=== PATIENT | male | born 1945 | race Caucasian/White ===

== ENCOUNTER 2021-07-19 13:06 | Outpatient (REF) | payer MEDICARE, OTHER, SELFPAY ==
[2021-07-19 14:51] LABS: Alanine Aminotransferase 33 U/L (0-40); Albumin Level 4.3 g/dL (3.5-5.0); Alkaline Phosphatase 79 U/L (39-117); Anion Gap 12 (12-20); Aspartate Amino Transferase 17 U/L (5-37); Blood Urea Nitrogen 23 mg/dL (9-16); Calcium 9.3 mg/dL (8.4-10.2); Carbon Dioxide 27 mmol/L (22-29); Chloride 106 mmol/L (96-108); Estimated Glomerular Filt Rate > 60; Glucose Random 83 mg/dL (60-115); Potassium 4.5 mmol/L (3.3-5.1); Sodium 140 mmol/L (135-145); Total Protein 6.6 g/dL (6.5-8.0)
[2021-07-19 15:13] LABS: Prostate Specific Antigen Scr 1.71 ng/mL (<0.05-4.0)
== END 2021-07-19 13:07 | disposition home or self-care (01) ==
LOC: HO.LAB 13:06
PROVIDERS: PCP Family Medicine; Visit Provider Family Medicine
DX: Z12.5 Encounter for screening for malignant neoplasm of prostate (principal); R53.83 Other fatigue; N40.0 Benign prostatic hyperplasia without lower urinary tract symptoms
CPT/HCPCS: 36415; 80053; 84153

== ENCOUNTER 2023-07-23 11:14 | Outpatient (REF) | payer MEDICARE, OTHER, SELFPAY ==
[2023-07-23 11:27] LABS: MANUAL DIFF FLAG NO
[2023-07-23 12:11] LABS: Basophils Percent Auto 0.8 % (0-2); Eosinophils Absolute Auto 0.2 X10*3/uL (0.0-0.4); Eosinophils Percent Auto 3.7 % (0-4); Hematocrit 45.8 % (42.0-52.0); Imm Gran Abs Auto 0.02 X10*3/uL (0.00-0.03); Imm Gran Pct Auto 0.4 % (0.0-0.4); Lymphocytes Absolute Auto 1.8 X10*3/uL (1.2-4.9); Mean Corpuscular HGB Conc 32.8 g/dl (31.0-36.0); Mean Corpuscular Hemoglobin 30.7 pg (27.0-33.0); Mean Corpuscular Volume 93.7 fL (80.0-98.0); Mean Platelet Volume 11.6 fL (9.4-12.4); Monocytes Absolute Auto 0.4 X10*3/uL (0.1-1.2); Monocytes Percent Auto 8.1 % (2-11); Neutrophils Absolute Auto 2.7 x10*3/uL (2.0-8.3); Platelet Count 184 X10*3/uL (160-400); Red Blood Count 4.89 X10*6/uL (4.60-5.80); Red Cell Distribution Width 12.7 % (11.0-16.0); White Blood Count 5.2 X10*3/uL (4.8-10.8)
[2023-07-23 12:59] LABS: Anion Gap 9 (12-20); Blood Urea Nitrogen 20 mg/dL (9-16); Carbon Dioxide 27 mmol/L (22-29); Chloride 109 mmol/L (96-108); Estimated Glomerular Filt Rate > 60; Potassium 4.3 mmol/L (3.3-5.1); Sodium 141 mmol/L (135-145)
== END 2023-07-23 11:15 | disposition home or self-care (01) ==
LOC: HO.LAB 11:14
PROVIDERS: PCP Family Medicine; Visit Provider Family Medicine
DX: M19.90 Unspecified osteoarthritis, unspecified site (principal); I10 Essential (primary) hypertension
CPT/HCPCS: 36415; 80051; 82565; 84520; 85025

== ENCOUNTER 2024-04-28 11:45 | Outpatient (REF) | payer MEDICARE, OTHER, SELFPAY ==
[2024-04-28 14:16] LABS: Anion Gap 14 (12-20); Blood Urea Nitrogen 20 mg/dL (9-16); Carbon Dioxide 24 mmol/L (22-29); Chloride 108 mmol/L (96-108); Estimated Glomerular Filt Rate > 60; Potassium 4.4 mmol/L (3.3-5.1); Sodium 142 mmol/L (135-145)
== END 2024-04-28 11:46 | disposition home or self-care (01) ==
LOC: HO.10HDL 11:45
PROVIDERS: Visit Provider Family Medicine
DX: I10 Essential (primary) hypertension (principal)
CPT/HCPCS: 36415; 80051; 82565; 84520

== ENCOUNTER 2025-10-17 10:50 | Outpatient (REF) | payer MEDICARE, OTHER, SELFPAY ==
[2025-10-17 11:48] LABS: MANUAL DIFF FLAG NO
[2025-10-17 12:12] LABS: Hematocrit 46.0 % (42.0-52.0); Hemoglobin 14.9 g/dl (14.0-18.0); Imm Gran Abs Auto 0.01 X10*3/uL (0.00-0.03); Imm Gran Pct Auto 0.2 % (0.0-0.4); Lymphocytes Absolute Auto 1.7 X10*3/uL (1.2-4.9); Mean Corpuscular HGB Conc 32.4 g/dl (31.0-36.0); Mean Corpuscular Hemoglobin 30.6 pg (27.0-33.0); Mean Corpuscular Volume 94.5 fL (80.0-98.0); NRBC Abs Auto 0.000 X10*3/uL (0.0-0.012); NRBC Pct Auto 0.0 /100WBC (0.0-0.2); Platelet Count 194 X10*3/uL (160-400); Red Blood Count 4.87 X10*6/uL (4.60-5.80); White Blood Count 4.8 X10*3/uL (4.8-10.8)
[2025-10-17 12:47] LABS: Alanine Aminotransferase 29 U/L (0-40); Albumin Level 4.7 g/dL (3.5-5.0); Alkaline Phosphatase 81 U/L (39-117); Anion Gap 13 (12-20); Aspartate Amino Transferase 20 U/L (5-37); Blood Urea Nitrogen 17 mg/dL (9-16); Calcium 9.5 mg/dL (8.4-10.2); Carbon Dioxide 26 mmol/L (22-29); Chloride 107 mmol/L (96-108); Cholesterol 209 mg/dL (<200); Estimated Glomerular Filt Rate > 60; HDL Cholesterol 53 mg/dL (>40); Potassium 4.6 mmol/L (3.3-5.1); Sodium 141 mmol/L (135-145); Total Protein 7.1 g/dL (6.5-8.0); Triglycerides 130 mg/dL (<150)
[2025-10-17 13:04] LABS: HBS Num1 0.14 mIU/mL (0-7.99); HBc Num1 0.10 S/CO (0.00-0.79); HBsAGNum1 0.47 S/CO (0.00-0.99); HIV Num 1 0.05 S/CO (0.00-0.99); Hepatitis A Antibody IgM 0.21 Index (0-0.79); Hepatitis B Surface Antigen Negative (Negative); ~HepC Num1 0.15 S/CO (0.00-0.79); ~Hepatitis A Antibody IgM Nonreactive (Nonreactive); ~Hepatitis B Surface Antibody NONREACTIVE (Nonreactive); ~Hepatitis C Antibody Nonreactive (Nonreactive)
[2025-10-17 13:05] LABS: Syphilis Screen Nonreactive (Nonreactive)
== END 2025-10-17 10:51 | disposition home or self-care (01) ==
LOC: HO.LAB 10:50
PROVIDERS: PCP Student in an Organized Health Care Education/Training Program; Visit Provider Student in an Organized Health Care Education/Training Program
DX: Z00.00 Encounter for general adult medical examination without abnormal findings (principal); I10 Essential (primary) hypertension; M17.0 Bilateral primary osteoarthritis of knee; N40.1 Benign prostatic hyperplasia with lower urinary tract symptoms; R35.1 Nocturia; E78.5 Hyperlipidemia, unspecified; R73.03 Prediabetes
CPT/HCPCS: 36415; 80053; 80061; 82306; 82570; 83036; 84443; 85025; 86704; 86706; 86709; 86780; 86803; 87340; 87389; 99202; 99387

== ENCOUNTER 2025-10-17 10:50 | Outpatient (AMB) | payer MEDICARE, OTHER, SELFPAY ==
--- NOTE | 2025-10-17 10:56 | A.OFFPC_ITS ---
Vital Signs 10/17/25 11:01 Height 5 ft 9 in Weight 185 lb BMI 27.3 BP 184/96 H Blood Pressure Location Lt brachial Position Sitting Respiration 18 Pulse 66 Pulse Source Pulse Oximeter Temp 97.9 F Temp Source Temporal Artery Scan Pulse Oximetry (%) 98 Oxygen Delivery Method Room Air Intake Visit Reasons: 3 MO F/UP - [facility] Shift Lead Required: No Accompanied by: Self / Same As Patient Allergies No Known Allergies Allergy (Verified 10/17/25 10:59) Medication List - Last Reconciled 10/17/25 by Bijan Ledesma MD losartan 100 mg PO DAILY Tobacco use date assessed: 10/17/25 Fall risk assessment: No Falls in past year Last assessed Fall Risk: 10/17/25 Dental Screening Dental Screen Date: 10/17/25 Did you have a dental visit in the last 12 months?: Yes Did you have a dental problem in the last 6 months where you did not have access to dental care?: No Was dental information given to patient?: Patient has dentist HPI HPI Comments History of Present Illness Details History of Present Illness The patient is a 79-year-old male presenting for a new patient visit for establishment of care and management of chronic conditions. He reports a history of hypertension diagnosed about two years ago. He currently takes losartan at night, having been switched from lisinopril due to a cough. His blood pressure at home is typically in the 150s, but can decrease to the 128-132/68-71 range after exercise. The patient has severe, [id number] osteoarthritis of the knees. He has tried cortisone injections without success and is planning to receive gel injections. His father had colon cancer and at age 71. The patient underwent regular colonoscopies until about age 70-75, with his last one performed in 2013. The patient reports urinary symptoms including nocturia once or twice a night and a weak stream, which he states is not bothersome. Socially, the patient is retired and lives an active lifestyle, playing pickleball and tennis multiple times per week and going to the gym. He reports occasional alcohol consumption of beer or wine, about 2-3 times per week, and denies any history of smoking or illicit drug use. Medical History: - Hypertension, diagnosed approximately 2 years ago - Osteoarthritis of the knees, described as bone on bone - History of cough secondary to lisinopr il Surgical History: - Denies any past surgeries. Medications: - Losartan for hypertension, taken at [facility]. Family History: - Father had colon cancer and at ag e 71. - Denies family history of heart disease or diabetes. Diagnostic Results: - Vitals: Blood pressure in clinic was 1 84/96 mmHg. - Home Blood Pressure Monitoring: Report s readings in the 150s at rest, and 128-132/68-71 after exercise. - Past Screening: Last colonoscopy was i n 2013. Social History - Tobacco Use: Denies ever smoking. - Alcohol Use: Reports occasional use of beer or wine, approximately 2-3 times per week. - Illicit Substance Use: Denies use of m arijuana, heroin, or cocaine. 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 - Exercise: Reports being very active; p lays pickleball 2-3 hours three times a week, plays tennis, and goes to the gym. [facility] Medical History (Updated 10/17/25 @ 12:02 by Bijan Ledesma MD) Annual physical exam BPH associated with nocturia Osteoarthritis, knee Hypertension, essential, benign Surgical History (Updated 10/16/25 @ 16:42 by Ivet Tracey) History of colonoscopy (~10/11/14) Social History Housing: House Patient Tobacco Use Status: Never used Tobacco e-Cigarette/Vaping Use: Never Used service: Yes Current occupational status: retired Questionnaire AUDIT C Alcohol Use Questionnaire (AUDIT-C) 1. How often do you have a drink containing alcohol?: 2-3 times a week 2. How many drinks containing alcohol do you have on a typical day when you are drinking?: 1 or 2 3. How often do you have six or more drinks on one occasion?: Never Total Score: 3 Score Reviewed/Action Taken: Yes Review of Systems Narrative Review of Systems - Constitutional: Denies weight loss or weight gain. - Cardiovascular: Denies chest pain, palpitations, or feeling that his heart is racing. - Eyes: Denies any change in vision. - Gastrointestinal: Denies difficulty swallowing, abdominal pain, or constipation. - Genitourinary: Reports nocturia (waking 1-2 times per night to urinate) and a weak urinary stream. - Neurological: Denies headaches. - Musculoskeletal: Reports leg swelling associated with his knee condition. - Psychological: Reports a good mood. All systems reviewed & are unremarkable except as reviewed in HPI and above Physical exam (Primary Care) Vital Signs: Last Vital Signs Temp 97.9 F 10/17/25 11:01 Pulse 66 10/17/25 11:01 Resp 18 10/17/25 11:01 BP 184/96 H 10/17/25 11:01 Pulse Ox 98 10/17/25 11:01 Oxygen Delivery Method Room Air 10/17/25 11:01 BMI result Body Mass Index 27.3 Tobacco/Smoking Status: Tobacco use Status Tobacco use date assessed 10/17/25 10/17/25 10:59 Patient Tobacco Use Status Never used Tobacco 10/17/25 11:03 e-Cigarette/Vaping Use Never Used 10/17/25 11:03 Narrative Physical Exam General: +Alert and oriented, Well nourished, No acute distress. Eye: Pupils are equal, round and reactive to light, Intact accommodation, Extraocular movements are intact, Normal conjunctiva, Vision unchanged. HENT: Normocephalic, Atraumatic, Tympanic membranes are clear, Normal hearing, Oral mucosa is moist, No pharyngeal erythema, Ear canals patent. Respiratory: Lungs CTA bilaterally, No wheeze, Respirations are non-labored. Cardiovascular: Regular rate, Regular rhythm, S1 auscultated, S2 auscultated, No murmur, Good pulses equal in all extremities, Normal peripheral perfusion, No edema. Gastrointestinal: Soft, Non-tender, Non-distended, Normal bowel sounds, No organomegaly. Musculoskeletal: Normal range of motion, Normal strength, No tenderness, No swelling, No deformity, Normal gait. Integumentary: Warm, Dry, [place], Intact. Neurologic: Alert, Oriented, Normal sensory, Normal motor function, No focal defects, Cranial Nerves II-XII are grossly intact, Normal deep tendon reflexes. Psychiatric: Cooperative, Appropriate mood & affect, Normal judgment. Coding Level of Care Code New Pt Level 4 (69655) New Pt Prev Care >65yr (60201) Diagnoses Hypertension, essential, benign I10 Osteoarthritis of knee, unspecified laterality, unspecified osteoarthritis type M17.9 Laterality: unspecified laterality Osteoarthritis type: unspecified BPH associated with nocturia N40.1; R35.1 Annual physical exam Z00.00 Comment [id number] Assessment & Plan Assessment & Plan (1) Hypertension, essential, benign: Comment: - The patient's blood pressure is severely elevated at 184/96 mmHg despite treatment with losartan. - Home readings are also above goal in the 150s. - The plan is to intensify therapy by adding amlodipine 5 mg daily. - The patient was initially hesitant about adding a second medication but was counseled on the high risk of stroke associated with his current blood pressure and the standard practice of using combination therapy. - He will take both losartan and amlodipine in the morning, check his blood pressure daily one hour after medicating, and follow up in one week to assess response. - The dose of amlodipine may be increased to 10 mg if needed. - He was also counseled on salt reduction. Code(s): I10 - Essential (primary) hypertension Category: Medical (2) Osteoarthritis, knee: Comment: - The patient reports severe, [id number] arthritis. - He has failed cortisone injections and is appropriately pursuing viscosupplementation (gel injections) with his specialist. Code(s): M17.9 - Osteoarthritis of knee, unspecified Category: Medical Qualifiers: Laterality: unspecified laterality Osteoarthritis type: unspecified Qualified Code(s): M17.9 - Osteoarthritis of knee, unspecified (3) BPH associated with nocturia: Comment: - The patient's symptoms of nocturia and a weak urinary stream are consistent with BPH, a common age-related condition. - He was informed that medications are available to reduce the size of the prostate and improve symptoms, should he wish to pursue treatment. Code(s): N40.1 - Benign prostatic hyperplasia with lower urinary tract symptoms; R35.1 - Nocturia Category: Medical (4) Annual physical exam: Comment: - A comprehensive panel of baseline blood work was ordered, including CBC, electrolytes, glucose, lipid panel, urinalysis, syphilis screen, TSH, and vitamin D. Cardiovascular risk will be assessed after lab results are available to guide discussion on potential statin therapy. - The patient declined the influenza and COVID-19 vaccines. Code(s): Z00.00 - Encounter for general adult medical examination without abnormal findings Category: Medical Plan: Health Maintenance: - Colon cancer screening: Ordered Cologuard test due to strong family history. - Immunizations: Patient declined to receive the flu shot and COVID shot. - Laboratory Screening: Ordered comprehensive baseline labs including CBC, electrolytes, glucose, lipid panel, urinalysis, syphilis screen, TSH, and vitamin D. - Cardiovascular Risk Reduction: Discussed that his current high blood pressure places him at very high risk for cardiovascular events. Advised on dietary salt reduction. Plan to calculate cardiovascular risk score after cholesterol results are available and discuss potential statin therapy, with the final decision resting with the patient. Patient was informed and verbally consented to the use of an ambient scribe for clinic note documentation during this visit. Vital signs reviewed. Comprehensive history, review of systems, and physical exam completed. Medications, allergies, and problem list reviewed and updated. Counseling provided on nutrition, regular exercise, sleep hygiene, and moderation of alcohol use. Discussed age-appropriate screenings (mammogram, colonoscopy, Pap, bone density) and immunizations (flu, COVID, shingles, Tdap). Screened for depression, fall risk, and home safety; no current concerns. Discussed stress management, dental and vision care, and importance of ongoing preventive follow-up. Routine labs ordered for metabolic and lipid screening. Patient educated on healthy lifestyle and agrees with the plan. Plan I had a detailed discussion with the patient regarding his severely elevated blood pressure of 184/96 mmHg. I explained that his current monotherapy with losartan is insufficient and that his pressures put him at a very high risk for a stroke. I recommended adding a second medication, amlodipine 5 mg, and explained that using multiple classes of antihypertensives is a standard, guideline-based practice for treating resistant hypertension. The patient was initially resistant to taking two medications, but I emphasized that my recommendations are based on medical evidence and are aimed at ensuring his safety. We agreed on a plan for him to start amlodipine, monitor his blood pressure at home daily, and return in one week to review the readings and lab results. I also discussed ordering comprehensive baseline labs and a Cologuard test for colon cancer screening due to his family history. I informed him that depending on his cholesterol levels, we would discuss his cardiovascular risk and the potential option of starting a statin, clarifying that the ultimate decision to take medication would be his. I also provided anticipatory guidance regarding his urinary symptoms, explaining they are likely due to BPH and that treatment options are available, and advised management for his venous insufficiency with compression stockings and leg elevation. Orders: Orders Complete Blood Count Auto Diff Today Z00.00 - Encounter for general adult medical examination without abnormal findings Comprehensive Met. Panel Today Z00. - Encounter for general adult medical examination without abnormal findings Hemoglobin A1c Today Z00.00 - Encounter for general adult medical examination without abnormal findings Hepatitis A,B,C Profile Today Z. - Encounter for general adult medical examination without abnormal findings HIV Ab/Ag Today Z. - Encounter for general adult medical examination without abnormal findings Microalbumin, Random (w Creat) Today Z00. - Encounter for general adult medical examination without abnormal findings Syphilis Screen Today Z. - Encounter for general adult medical examination without abnormal findings Vitamin D 25-OH Total Today Z00. - Encounter for general adult medical examination without abnormal findings Lipid Panel Today Z00. - Encounter for general adult medical examination without abnormal findings TSH reflex Free T4 Today Z00. - Encounter for general adult medical examination without abnormal findings Referrals Cologuard Test Z12.11 - Encounter for screening for malignant neoplasm of colon Medications: New amlodipine 5 mg PO DAILY 30 tabs 0RF Patient Instructions: - Start taking amlodipine 5 mg, one tablet by mouth once daily. - Take your losartan and the new amlodipine medication together in the morning. - Check your blood pressure at home every day, about an hour after taking your morning medications. Please write down the readings and bring the log with you to your next appointment. - Please go to the lab to have the ordered blood work done before your next visit. - A Cologuard kit for colon cancer screening will be sent to your home. Please follow the instructions to complete and mail the test. - Reduce the amount of salt in your diet to help control your blood pressure. - To help with circulation in your legs, wear tight-fitting compression stockings and keep your legs elevated when you are sitting or resting. - Return to the clinic for a follow-up visit in one week.
[2025-10-17 11:01] VITALS: BP 184/96; PULSE 66; RESP 18; TEMP 36.6; O2SAT 98; BMI 27.3
== END 2025-10-17 11:30 | disposition home or self-care (01) ==
PROVIDERS: PCP Student in an Organized Health Care Education/Training Program; Visit Provider Student in an Organized Health Care Education/Training Program
DX: Z00.00 Encounter for general adult medical examination without abnormal findings (principal); I10 Essential (primary) hypertension; M17.9 Osteoarthritis of knee, unspecified; N40.1 Benign prostatic hyperplasia with lower urinary tract symptoms; R35.1 Nocturia

== ENCOUNTER 2025-10-23 10:46 | Outpatient (AMB) | payer MEDICARE, OTHER, SELFPAY ==
--- NOTE | 2025-10-23 10:46 | A.OFFPC_ITS ---
Vital Signs 10/23/25 11:01 Height 5 ft 9 in Weight 184 lb BMI 27.2 BP 160/90 H Blood Pressure Location Lt brachial Position Sitting Pulse 71 Pulse Source Pulse Oximeter Temp 97.8 F Temp Source Temporal Artery Scan Pulse Oximetry (%) 98 Oxygen Delivery Method Room Air Intake Visit Reasons: 1 WK F/U BP Greenhouse Manager Required: No Accompanied by: Self / Same As Patient Allergies No Known Allergies Allergy (Verified 10/17/25 10:59) Medication List - Last Reconciled 10/23/25 by Bijan Ledesma MD amlodipine 10 mg PO DAILY atorvastatin (Lipitor) 20 mg PO BEDTIME losartan 100 mg PO DAILY Tobacco use date assessed: 10/23/25 Fall risk assessment: No Falls in past year Last assessed Fall Risk: 10/23/25 Dental Screening Dental Screen Date: 10/23/25 Did you have a dental visit in the last 12 months?: Yes Did you have a dental problem in the last 6 months where you did not have access to dental care?: No HPI HPI Comments History of Present Illness Details History of Present Illness The patient is a 79 year old individual presenting for management of chronic conditions. The patient has a history of hypertension and monitors blood pressure at home, with recent readings in the 140s-160s despite taking amlodipine 5 mg and losartan. The patient notes that blood pressure is sometimes lower after going to the gym or playing sports. The patient has a known history of high cholesterol and prediabetes, confirmed by blood work 10-12 years ago. The patient has previously taken a statin medication which caused muscle discomfort, described as legs feeling funny. The patient expresses a general hesitancy to take pills. The patient is an active individual who goes to the gym and is mindful of diet, reporting low salt intake andrarely using a salt shaker. Medical History: - Hypertension - Hyperlipidemia - Prediabetes Medications: - Amlodipine 5 mg, taken in the morning for hypertension. - Losartan for hypertension. Diagnostic Results: - Blood counts: Normal. - Electrolytes: Normal. - Kidney function: Normal. - Hemoglobin A1c: 5.8%, consistent with prediabetes. - Total Cholesterol: 209 mg/dL. - LDL Cholesterol: 130 mg/dL. Social History - Exercise: The patient is active, goes to the gym, and plays sports. - Diet: The patient reports being mindfu l of sugar, carbohydrate, and pasta intake and rarely uses a salt shaker. [facility] Medical History (Updated 10/23/25 @ 11:22 by Bijan Ledesma MD) Hyperlipidemia Prediabetes Annual physical exam BPH associated with nocturia Osteoarthritis, knee Hypertension, essential, benign Surgical History History of colonoscopy (~10/11/14) Family History (Updated 10/23/25 @ 11:06 by Miriam Carvalho MA) Mother No problems noted. Father No problems noted. Social History Housing: House Patient Tobacco Use Status: Never used Tobacco e-Cigarette/Vaping Use: Never Used service: Yes Current occupational status: retired Cognitive needs: No Hearing needs: No Vision needs: No Questionnaire PHQ-9 Over the last 2 weeks, how often have you been bothered by any of the following problems? 1. Little interest or pleasure in doing things: not at all 2. Feeling down, depressed, or hopeless: not at all 3. Trouble falling or staying asleep, or sleeping too much: not at all 4. Feeling tired or having little energy: not at all 5. Poor appetite or overeating: not at all 6. Feeling bad about yourself - or that you are a failure or have let yourself or your family down: not at all 7. Trouble concentrating on things, such as reading the newspaper or watching television: not at all 8. Moving or speaking so slowly that other people could have noticed. Or the opposite - being so fidgety or restless that you have been moving around a lot more than usual: not at all 9. Thoughts that you would be better off or of hurting yourself in some way: not at all Total score: 0 Depression Screening Interpretation: Negative Depression Screening Done: Yes 99882 - PHQ-9 Billing: Yes Source: Developed by Drs. Rangel Garzon, Karley Walker, Cory Parmar and colleagues, with an educational chidi from [employer]. Thrive Questionnaire Date Thrive assessed: 10/23/25 I am a: Patient What is your living situation today?: I have a steady place to live Within the past 12 months, did the food you bought not last and you didn't have the money to get more?: Never true Within the past 12 months, did you worry whether your food would run out before you got money to buy more?: Never true Do you have trouble paying for medicines?: No Do you have trouble getting transportation to medical appointments?: No Do you have trouble paying your heating and electricity bill?: No Do you have trouble taking care of your child, family member or friend?: No Do you have trouble with day-to-day activities such as bathing, preparing meals, shopping, managing finances, etc.?: No Are you currently unemployed and looking for a job?: No Are you interested in more education?: No THRIVE Score: 0 AUDIT C Alcohol Use Questionnaire (AUDIT-C) 1. How often do you have a drink containing alcohol?: Never 3. How often do you have six or more drinks on one occasion?: Never Total Score: 0 Score Reviewed/Action Taken: Yes Review of Systems Narrative Review of Systems - Musculoskeletal: The patient reports a history of muscle discomfort in the legs with prior statin use. - Extremities: The patient denies current swelling. All systems reviewed & are unremarkable except as reviewed in HPI and above Physical exam (Primary Care) Vital Signs: Last Vital Signs Temp 97.8 F 10/23/25 11:01 Pulse 71 10/23/25 11:01 BP 160/90 H 10/23/25 11:01 Pulse Ox 98 10/23/25 11:01 Oxygen Delivery Method Room Air 10/23/25 11:01 BMI result Body Mass Index 27.2 Tobacco/Smoking Status: Tobacco use Status Tobacco use date assessed 10/23/25 10/23/25 10:48 Patient Tobacco Use Status Never used Tobacco 10/23/25 10:48 e-Cigarette/Vaping Use Never Used 10/23/25 10:48 Depression Screening Interpretation: Negative Narrative Physical Exam General: Alert and oriented, Well nourished, No acute distress. Eye: Pupils are equal, round and reactive to light, Intact accommodation, Extraocular movements are intact, Normal conjunctiva, Vision unchanged. HENT: Normocephalic, Atraumatic, Tympanic membranes are clear, Normal hearing, Oral mucosa is moist, No pharyngeal erythema, Ear canals patent. Respiratory: Lungs CTA bilaterally, No wheeze, Respirations are non-labored. Cardiovascular: Regular rate, Regular rhythm, S1 auscultated, S2 auscultated, No murmur, Good pulses equal in all extremities, Normal peripheral perfusion, No edema. Gastrointestinal: Soft, Non-tender, Non-distended, Normal bowel sounds, No organomegaly. Musculoskeletal: Normal range of motion, Normal strength, No tenderness, No swelling, No deformity, Normal gait. Integumentary: Warm, Dry, Winters, Intact. Neurologic: Alert, Oriented, Normal sensory, Normal motor function, No focal defects, Cranial Nerves II-XII are grossly intact, Normal deep tendon reflexes. Psychiatric: Cooperative, Appropriate mood & affect, Normal judgment. Coding Level of Care Code Est Pt Level 4 (09376) Complex visit Add On G2211 Diagnoses Hypertension, essential, benign I10 Prediabetes R73.03 Other hyperlipidemia E78.49 Hyperlipidemia type: other hyperlipidemia BPH associated with nocturia N40.1; R35.1 Additional Codes PHQ-9 - 76698 - PHQ-9 Billing: Yes ([id number]) Assessment & Plan Assessment & Plan (1) Hypertension, essential, benign: Comment: - Blood pressure remains uncontrolled, with home readings in the 140s-160s and an in-office reading of 160/90 mmHg, despite treatment with amlodipine 5 mg and losartan. - The plan is to increase amlodipine to 10 mg and losartan to 100 mg to achieve a goal blood pressure below 140 mmHg, ideally below 130 mmHg. Code(s): I10 - Essential (primary) hypertension Category: Medical (2) Prediabetes: Comment: - The patient's hemoglobin A1c is 5.8%, and the patient is aware of this diagnosis. - The plan is to continue with dietary modifications, specifically being mindful of sugar, carbohydrate, and pasta intake. Code(s): R73.03 - Prediabetes Category: Medical (3) Hyperlipidemia: Comment: - Lab results show elevated total cholesterol ? 209 mg/dL and LDL at 130 mg/dL. - The patient's calculated 10-year cardiovascular risk is approximately 37%, indicating a high-risk status. - A statin is strongly recommended for risk reduction. - After discussing the patient's prior experience with muscle discomfort on a statin, the plan is to initiate atorvastatin 20 mg to be taken at night. - The patient was educated that if muscle symptoms recur, a switch to rosuvastatin is an option. Code(s): E78.5 - Hyperlipidemia, unspecified Category: Medical Qualifiers: Hyperlipidemia type: other hyperlipidemia Qualified Code(s): E78.49 - Other hyperlipidemia (4) BPH associated with nocturia: Comment: - The patient's symptoms of nocturia and a weak urinary stream are consistent with BPH, a common age-related condition. - He was informed that medications are available to reduce the size of the prostate and improve symptoms, should he wish to pursue treatment. Code(s): N40.1 - Benign prostatic hyperplasia with lower urinary tract symptoms; R35.1 - Nocturia Category: Medical Plan: - Cardiovascular disease risk: Calculated at approximately 37% over 10 years, indicating high risk. Discussed risk reduction through blood pressure management and statin therapy. - Diet: The patient was counseled to be mindful of sugar, carbohydrate, and pasta intake due to prediabetes. The patient also reports being careful with brenton t intake. - Exercise: The patient is active and was encouraged to continue this lifestyle. Patient was informed and verbally consented to the use of an ambient scribe for clinic note documentation during this visit. Plan I discussed with the patient that blood pressure remains elevated despite current medications, with recent readings in the 140s-160s. I recommended increasing the amlodipine dose to 10 mg and the losartan dose to 100 mg to achieve better control. I also reviewed the patient's lab results, highlighting the high cholesterol (LDL 130 mg/dL) and prediabetic status (A1C 5.8). I calculated the cardiovascular risk to be approximately 37% and strongly recommended starting statin therapy for risk reduction. We discussed the honey kowalski's prior experience with muscle discomfort on a similar medication, and the plan is to start atorvastatin 20 mg at night, with the option to switch to rosuvastatin if myalgias recur. The patient agreed to this plan. We also discussed the importance of dietary modifications for both hypertension and prediabetes. A follow-up is scheduled for 6 months. Medications: New amlodipine 10 mg PO DAILY 90 tabs 0RF atorvastatin (Lipitor) 20 mg PO BEDTIME 90 tabs 2RF Discontinued amlodipine Discontinued Reason: Doctor's Order 5 mg PO DAILY 30 tabs 0RF Patient Instructions: - Take your blood pressure pills in the morning. Your amlodipine dose will be increased from 5 mg to 10 mg. Your losartan dose will be increased to 100 mg. - You will start a new medication for cholesterol called atorvastatin (20 mg). Take this pill at night before you go to bed. - The cholesterol medication can sometimes cause muscle aches. If you notice your legs feel funny or painful, please contact our office. - Continue to be careful with your diet, especially your intake of sugar, pasta, and salt. - Keep up with your active lifestyle and exercise. - We will see you back in the office in 6 months for a follow-up.
[2025-10-23 11:01] VITALS: BP 160/90; PULSE 71; TEMP 36.6; O2SAT 98; BMI 27.2
--- OUTSIDE RECORDS SUMMARY | 2025-10-23 13:32 | XMS_ITS | Clinical Summary ---
Author Organization [employer] Address [address] [place] [address] Care Team Providers Care Speech And Hearing Director Name Role Phone Victor Hugo Weber Unavailable Allergies No known active allergies Medications amLODIPine (Norvasc) 10 MG tablet Take 10 mg by mouth at bedtime. 2024 Active ibuprofen 200 MG tablet Take by mouth every 6 (six) hours if needed. Active Active Problems No known active problems Encounters Date Type Department Care Team Description 10/12/2025 Telephone [facility] [address] [place] [address] Joyce Hurd 10/05/2025 Travel from Last 3 Months Social History Tobacco Use Types Packs/Day Years Used Date Smoking Tobacco: Never Smokeless Tobacco: Never Tobacco Cessation:Counseling Given: Not Answered Alcohol Use Standard Drinks/Week Comments Defer 0 (1 standard drink = 0.6 oz pur e alcohol) Sex and Gender Information Value Date Recorded Sex Assigned at Male 09/29/2022 10:25 AM EDT Legal Sex Male 10:25 AM EDT Gender Identity Male 01/02/2025 9:50 AM EST Sexual Orientation Choose not to disclose 2024 9:50 AM EST Last Filed Vital Signs Vital Sign Reading Time Taken Comments Blood Pressure 136/82 01/26/2025 8:54 AM EST Pulse - - Temperature - - Respiratory Rate - - Oxygen Saturation - - Inhaled Oxygen Concentration - - Weight - - Height - - Body Mass Index - - Plan of Treatment Upcoming Encounters Date Type Department Care Team (Late st Contact Info) Description 11/21/2025 8:00 AM EST Office Visit [facility] [address] [place] [address] Joyce Hurd Health Maintenance Due Date Last Done Comments Depression Screening 1945 Lipid Panel 1945 SDOH Screening 1946 Alcohol/Substance Use Screening 1958 Hepatitis C Screening 1964 Pneumococcal Vaccine: 50+ Years (1 of 1 - PCV) 1996 Zoster Vaccines (1 of 2) 1996 RSV Patients and Patients Aged 60 years or older (1 - 1-dose 75+ series) 2021 DTaP/Tdap/Td Vaccines (2 - Td or Tdap) 03/08/2023 03/08/2013 Dental Oral Exam 07/27/2025 01/26/2025, , 04/13/2014, Additional history exists Dental Prophylaxis 07/27/2025 01/26/2025, 1 12/17/2013, 10/17/2014, Additional history exists COVID-19 Vaccine ( season) 2025 Influenza Vaccine (#1) 2025 Dental X-Ray: Bitewings 01/27/2026 01/26/20 25, 10/17/2014, 10/17/2014, Additional history exists Tobacco Screening 04/21/2026 04/21/2025 Dental X-Ray: Full Mouth 01/27/2028 01/26/2025, 03/30 HIB Vaccines Aged Out No longer eligi ble based on patient's age to complete this topic HPV Vaccines Aged Out No longer eligi ble based on patient's age to complete this topic Hepatitis A Vaccines Aged Out No long er eligible based on patient's age to complete this topic Hepatitis B Vaccines Aged Out No long er eligible based on patient's age to complete this topic IPV Vaccines Aged Out No longer eligi ble based on patient's age to complete this topic Meningococcal B Vaccine Aged Out No l onger eligible based on patient's age to complete this topic Meningococcal Vaccine Aged Out No rachell donald eligible based on patient's age to complete this topic RSV under 20 months Aged Out No longe r eligible based on patient's age to complete this topic Rotavirus Vaccines Aged Out No longer eligible based on patient's age to complete this topic Procedures Procedure Name Priority Date/Time Associated Diagnosis Comments PROPHYLAXIS - ADULT Routine 01/26/2025 9 :00 AM EST INTRAORAL - COMPLETE SERIES OF RADIOGRAPHIC IMAGES Routine 01/26/2025 9:00 AM EST PERIODIC ORAL EVALUATION - ESTABLISHED PATIENT Routine 01/26/2025 9:00 AM EST from Last 3 Months or Most Recently Relevant to Health Maintenance Insurance DENTAL - [facility] [facility] Care Teams Speech And Hearing Director Relationship Specialty Start Date End Date Victor Hugo Weber [address] [place] [address] Resident Dental Destaticizer Feeder 01/26/25
== END 2025-10-23 11:18 | disposition home or self-care (01) ==
LOC: HO.HMCHD 10:46
PROVIDERS: PCP Student in an Organized Health Care Education/Training Program; Visit Provider Student in an Organized Health Care Education/Training Program
DX: I10 Essential (primary) hypertension (principal); R73.03 Prediabetes; E78.49 Other hyperlipidemia; N40.1 Benign prostatic hyperplasia with lower urinary tract symptoms; R35.1 Nocturia

== ENCOUNTER → 2025-10-23 10:46 | Outpatient (BNVA) | payer MEDICARE, OTHER, SELFPAY | PROVIDERS: PCP Student in an Organized Health Care Education/Training Program; Visit Provider Student in an Organized Health Care Education/Training Program | DX: I10 Essential (primary) hypertension (principal); R73.03 Prediabetes; E78.5 Hyperlipidemia, unspecified; N40.1 Benign prostatic hyperplasia with lower urinary tract symptoms; R35.1 Nocturia; Z79.899 Other long term (current) drug therapy; Z13.31 Encounter for screening for depression | CPT/HCPCS: 96127; 99212 ==